=== PATIENT | female | born 1930 | race Caucasian/White ===

== ENCOUNTER 2017-01-03 18:18 | Outpatient (CLI) | payer MEDICARE ==
--- NOTE | 2017-01-04 04:47 | Ultrasound Report ---
EXAM: RIGHT LOWER EXTREMITY VENOUS ULTRASOUND EXAM DATE: 01/03/2017 07:19 PM. CLINICAL HISTORY: ACUTE ONSET PAIN BEHIND KNEE, SWELLING POSTERIOR L. COMPARISON: 12/25/2012. TECHNIQUE: Real-time sonographic vascular imaging was performed by the chain hoist operator through the lower extremity utilizing both color-flow and Doppler spectral analysis. Multiple business center representative static eric ges were saved for review. FINDINGS: Common Femoral Vein (CFV): Normal. CFV-GSV Junction: Normal. Profunda Femoral Vein (PFV): Normal. Femoral Vein (FV) Prox: Normal. Femoral Vein (FV) Mid: Normal. Femoral Vein (FV) Dist: Normal. Popliteal Vein: Normal. Posterior Tibial Veins: Normal. Peroneal Veins: Normal. Contralateral Side CFV: Normal. Other: Small, 2 x 1 x 1 cm popliteal cyst. IMPRESSION: No evidence for deep venous thrombosis. Small popliteal cyst. [facility] Referring Provider Line: [phone] SITE ID: [id number]
== END 2017-01-03 18:19 | disposition home or self-care (01) ==
LOC: DI 18:18
PROVIDERS: ATTEND Internal Medicine
DX: M71.21 Synovial cyst of popliteal space [Baker], right knee (principal)

== ENCOUNTER 2017-07-23 13:41 | Outpatient (CLI) | payer MEDICARE ==
--- NOTE | 2017-07-24 09:26 | XRAY Report ---
DATE OF SERVICE: 07/23/2017 THREE VIEW LEFT SHOULDER: 07/23/2017 CLINICAL INDICATION: Pain. FINDINGS: Internal and external rotational views and a scapular Y view of the left shoulder demonstrate mild degenerative changes of the glenohumeral and acromioclavicular joints. There is no evidence of acute fracture or dislocation. No radiopaque foreign body is seen in the soft tissues. IMPRESSION: MILD DEGENERATIVE CHANGES. TD: 07/24/2017 10:24
== END 2017-07-23 13:42 | disposition home or self-care (01) ==
LOC: DI.S 13:41
PROVIDERS: ATTEND Physician Assistant
DX: M19.012 Primary osteoarthritis, left shoulder (principal)

== ENCOUNTER 2017-08-08 08:37 | Outpatient (CLI) | payer MEDICARE ==
[2017-08-08 18:18] LABS: HB2 TOTAL 13.7 g/dL; HEMOGLOBIN A1C 0.64 g/dL; HEMOGLOBIN A1C % 6.4 % (4.6-6.2)
[2017-08-08 18:20] LABS: ALBUMIN 3.8 g/dL (3.2-5.5); ALBUMIN/GLOBULIN RATIO 1.4 (1.0-2.2); BILIRUBIN,TOTAL 0.3 mg/dL (0.2-1.0); CALCIUM 8.9 mg/dL (8.5-10.3); CREATININE 0.7 mg/dL (0.4-1.0); TOTAL PROTEIN 6.6 g/dL (6.7-8.2)
== END 2017-08-08 08:38 | disposition home or self-care (01) ==
LOC: LAB.F 08:37
PROVIDERS: ATTEND Physician Assistant
DX: I10 Essential (primary) hypertension (principal); E11.9 Type 2 diabetes mellitus without complications; E78.5 Hyperlipidemia, unspecified
CPT/HCPCS: 36415; 80053; 83036; 84443

== ENCOUNTER 2018-04-09 12:53 | Outpatient (CLI) | payer MEDICARE ==
--- NOTE | 2018-04-09 16:13 | XRAY Report ---
Reason: R SIDED CHEST PAIN Procedure Date: 04/09/2018 Accession Number: [id number] / [id number] Procedure: XR - Chest 2 View X-Ray CPT Code: 77009 FULL RESULT: EXAM: CHEST RADIOGRAPHY EXAM DATE: 04/09/2018 12:08 PM. CLINICAL HISTORY: Right-sided chest pain. COMPARISON: SHOULDER 3 VIEW LT 07/23/2017 2:03 PM. TECHNIQUE: 2 views. FINDINGS: Lungs/Pleura: No focal opacities evident. No pleural effusion. No pneumothorax. Normal volumes. Mediastinum: Note is made of cardiomegaly. Other: None. IMPRESSION: Cardiomegaly. [facility]
== END 2018-04-09 12:54 | disposition home or self-care (01) ==
LOC: DI 12:53
PROVIDERS: ATTEND Physician Assistant
DX: R07.9 Chest pain, unspecified (principal); I51.7 Cardiomegaly
CPT/HCPCS: 71046

== ENCOUNTER 2018-07-27 14:10 | Emergency (ER) | payer MEDICARE ==
[2018-07-27 14:36] LABS: BASOPHILS # (AUTO) 0.1 10^3/uL (0.0-0.1); BASOPHILS % (AUTO) 0.6 %; EOSINOPHILS # (AUTO) 0.3 10^3/uL (0.0-0.7); EOSINOPHILS % (AUTO) 3.3 %; HGB - HEMOGLOBIN 12.9 g/dL (12.0-16.0); LYMPHOCYTES # (AUTO) 1.9 10^3/uL (1.5-3.5); LYMPHOCYTES % (AUTO) 20.6 %; MEAN CORPUSCULAR HEMOGLOBIN 29.2 pg (27.0-31.0); MEAN CORPUSCULAR HGB CONC 33.6 g/dL (32.0-36.0); MEAN CORPUSCULAR VOLUME 86.8 fL (81.0-99.0); MEAN PLATELET VOLUME 6.9 fL (7.9-10.8); MONOCYTES # (AUTO) 0.8 10^3/uL (0.0-1.0); MONOCYTES % (AUTO) 8.7 %; NEUTROPHILS # (AUTO) 6.1 10^3/uL (1.5-6.6); NEUTROPHILS % (AUTO) 66.8 %; PLT - PLATELET COUNT 224 10^3/uL (130-450); RED BLOOD COUNT 4.41 10^6/uL (4.20-5.40); RED CELL DISTRIBUTION WIDTH 15.4 % (12.0-15.0); WHITE BLOOD COUNT 9.2 x10^3/uL (4.8-10.8)
--- NOTE | 2018-07-27 14:43 | ED Physician Documentation ---
PD HPI CHEST PAIN - Stated complaint Stated Complaint: CHEST PRESSURE,SOA, WHEEZING - Chief complaint Chief Complaint: Cardiac - History obtained from History obtained from: Patient, Family - History of Present Illness Timing - onset: Other (87yo woman with chest pressure started last night. Today with some wheezing and dyspnea started today 1pm. The chest pressure is episodic lasting 30 minutes at a time and start with light exertion, i.e. getting out of bed.) Review of Systems Ten Systems: 10 systems reviewed and negative Constitutional: denies: Fever, Chills, Myalgias Cardiac: reports: Chest pain / pressure. denies: Palpitations Respiratory: reports: Dyspnea. denies: Cough GI: denies: Abdominal Pain PD PAST MEDICAL HISTORY - Past Medical History Cardiovascular: Hypertension Neuro: Dementia - Past Surgical History Past Surgical History: No - Present Medications Home Medications: Ambulatory Orders Medication Instructions Recorded Confirmed Lisinopril 1 tab PO DAILY 07/27/18 07/27/18 Metoprolol Tartrate 100 mg PO BID 07/27/18 07/27/18 Potassium Chloride [Micro-K] 1 tab PO DAILY 07/27/18 07/27/18 Sertraline [Zoloft] 1 tab PO DAILY 07/27/18 07/27/18 hydroCHLOROthiazide 1 tab PO DAILY 07/27/18 07/27/18 [Hydrochlorothiazide] metFORMIN [Glucophage] 500 mg PO BIDWM 07/27/18 07/27/18 - Allergies Allergies/Adverse Reactions: Allergies Allergy/AdvReac Type Severity Reaction Status Date / Time Penicillins AdvReac Itching Verified 07/27/18 14:33 - Social History Does the pt smoke?: No Smoking Status: Never smoker Does the pt drink ETOH?: No Does the pt have substance abuse?: No - Family History Family history: reports: Non contributory - Immunizations Immunizations are current?: Yes PD ED PE NORMAL - Vitals Vital signs reviewed: Yes - General General: No acute distress, Other (A/O x2) - HEENT HEENT: PERRL, EOMI - Neck Neck: Supple, no meningeal sign, No bony TTP - Cardiac Cardiac: RRR, No murmur - Respiratory Respiratory: No respiratory distress, Clear bilaterally - Abdomen Abdomen: Normal bowel sounds, Soft, Non tender - Derm Derm: Normal color, Warm and dry - Extremities Extremities: No edema, No calf tenderness / cord - Neuro Neuro: Normal speech - Psych Psych: Normal mood, Normal affect Results - Vitals Vitals: Vital Signs - 24 hr 07/27/18 07/27/18 07/27/18 14:17 14:29 14:57 Temperature 36.6 C Heart Rate 86 87 74 Respiratory 18 18 17 Rate Blood Pressure 160/78 H 160/88 H 148/80 H O2 Saturation 96 95 95 Oxygen O2 Source Room air - EKG (time done) 1420 Rate: Rate (enter#) (84) Rhythm: NSR (with pac) Intervals: LBBB Ischemia: Normal ST segments (neg sgarbossa) Compare to prior EKG: Old EKG unavailable Computer interpretation: Agree with computer - Labs Labs: Laboratory Tests 07/27/18 07/27/18 07/27/18 14:25 14:25 14:25 WBC 9.2 RBC 4.41 Hgb 12.9 Hct 38.3 MCV 86.8 MCH 29.2 MCHC 33.6 RDW 15.4 H Plt Count 224 MPV 6.9 L Neut # (Auto) 6.1 Lymph # (Auto) 1.9 C[place]shaw # (Auto) 0.8 Eos # (Auto) 0.3 Baso # (Auto) 0.1 Absolute Nucleated RBC 0.00 Nucleated RBC % 0.0 Sodium 134 L Potassium 3.8 Chloride 95 L Carbon Dioxide 29 Anion Gap 10.0 BUN 19 Creatinine 0.7 Estimated GFR (MDRD) 79 L Glucose 124 H Calcium 9.3 Total Bilirubin 0.6 AST 68 H ALT 67 H Alkaline Phosphatase 69 Troponin I < 0.04 Total Protein 6.9 Albumin 3.8 Globulin 3.1 Albumin/Globulin Ratio 1.2 Lipase 34 - Rads (name of study) 1v chest Radiology: EMP read contemporaneously (Cardiomegaly, redemonstration of sclerotic lesions over the left humerus) PD MEDICAL DECISION MAKING - ED course ED course: This is an 87-year-old woman with a history very concerning for unstable angina. She has a left bundle [place] block of uncertain acuity. Negative biomarkers. Cardiomegaly on chest x-ray. Offered to the family either staying here for a formal rule out and a stress versus calling cardiology for potential early interventional strategy and the opted for the latter. She except accepted to [facility] by Dr. Emmett Munoz at 3:40 PM. She received extra aspirin and beta-blockade, he did not recommend heparinizing her prior to transport. Departure - Departure Disposition: 02 Transfer Acute Care Hosp Clinical Impression: Unstable angina Condition: Stable
[2018-07-27] MEDS ORDERED: ASPIRIN CHEW 81 MG TABLET PO STA (14:47)
[2018-07-27] MEDS ORDERED: METOPROLOL TARTRATE 50 MG TABLET PO STA (14:48)
[2018-07-27 14:49] LABS: ALBUMIN 3.8 g/dL (3.2-5.5); ALBUMIN/GLOBULIN RATIO 1.2 (1.0-2.2); BILIRUBIN,TOTAL 0.6 mg/dL (0.2-1.0); CALCIUM 9.3 mg/dL (8.5-10.3); CREATININE 0.7 mg/dL (0.4-1.0); TOTAL PROTEIN 6.9 g/dL (6.7-8.2)
--- NOTE | 2018-07-27 14:58 | XRAY Report ---
Reason: chest pain Procedure Date: 07/27/2018 Accession Number: [id number] / [id number] Procedure: XR - Chest 1 View X-Ray CPT Code: 53519 FULL RESULT: EXAM: CHEST RADIOGRAPHY EXAM DATE: 07/27/2018 02:45 PM. CLINICAL HISTORY: Chest pain. COMPARISON: Chest radiograph dated 04/09/2018. TECHNIQUE: 1 view. FINDINGS: Lungs/Pleura: No focal opacities evident. No pleural effusion. No pneumothorax. Mediastinum: The heart is enlarged. The pulmonary vasculature is within normal limits. Other: Focal sclerotic density in the proximal right humerus measuring 9 mm, previously 10 mm and new focal sclerotic density projecting to the proximal left humerus. IMPRESSION: 1. Cardiomegaly with no pulmonary edema. 2. No focal consolidation. 3. Sclerotic densities in the proximal right humerus redemonstrated and new sclerotic density projecting through the proximal left humerus. These are nonspecific and incompletely assessed on this examination and may represent overlying shadows in the subcutaneous tissue. [facility]
[2018-07-27 16:22] VITALS: BP 154/76
== END 2018-07-27 16:51 | disposition short-term general hospital (02) ==
LOC: ED 14:10
DX: I20.0 Unstable angina (principal); I10 Essential (primary) hypertension; I44.7 Left bundle-branch block, unspecified; I49.1 Atrial premature depolarization; I51.7 Cardiomegaly; F03.90 Unspecified dementia, unspecified severity, without behavioral disturbance, psychotic disturbance, mood disturbance, and anxiety
CPT/HCPCS: 36415; 71045; 80053; 83690; 84484; 85025; 93005; 99284; 99285; A9270

== ENCOUNTER 2018-07-27 16:55 | Outpatient (CLI) | payer MEDICARE | END 2018-07-27 16:56 | disposition short-term general hospital (02) | LOC: EMS 16:55 | PROVIDERS: ATTEND Surgery | DX: R07.9 Chest pain, unspecified (principal); R06.2 Wheezing | CPT/HCPCS: A0425; A0426 ==